=== PATIENT | male | born 1965 | race Caucasian/White ===

== ENCOUNTER 2017-01-22 15:04 | Emergency (ER) | payer OTHER ==
--- NOTE | 2017-01-22 15:53 | Emergency Department Record ---
History of Present Illness - General Chief complaint: Extremity Problem Stated complaint: LEFT ANKLE INJURY Time Seen by Provider: 01/22/17 15:44 Source: Patient Mode of Arrival: crutches Limitations: No limitations - History of Present Illness Initial comments: 51 yo male presents with a left ankle injury that occurred last night. He lost his balance and jumped off a deck twisting his ankle. The pain persisted today. He is using crutches to help minimize weight bearing. MD Complaint: Extremity pain, Extremity swelling, Joint pain Onset/Timin -: Days(s) Location: Left, Ankle History of Same: No Radiation: Proximal Severity scale (1-10): 8 Quality: Aching Consistency: Constant Improves with: Rest Worsens with: Walking, Weight bearing Associated Symptoms: Denies other symptoms - Related Data Previous Rx's Medication Instructions Recorded Hydrocodone/Acetaminophen [[place] 1 each PO Q6H PRN #30 tablet 01/22/17 7.5-325 Tablet] Allergies Allergy/AdvReac Type Severity Reaction Status Date / Time Penicillins Allergy Unknown RASH Verified 01/22/17 15:17 Travel Screening - Travel/Exposure Within Last 30 Days Have you traveled within the last 30 days?: No - Travel/Exposure Within Last Year Have you traveled outside the [place] in the last year?: No - Additonal Travel Details Have you been exposed to anyone with a communicable illness?: No - Travel Symptoms Symptom Screening: None Review of Systems Constitutional: Denies: Chills, Fever, Malaise, Weakness Eyes: Denies: Eye discharge, Eye pain ENT: Denies: Congestion, Throat pain Respiratory: Denies: Cough, Dyspnea Cardiovascular: Denies: Chest pain, Syncope Endocrine: Denies: Fatigue Gastrointestinal: Denies: Abdominal pain, Diarrhea, Nausea, Vomiting Genitourinary: Denies: Dysuria, Frequency, Hematuria, Urgency Musculoskeletal: Reports: Arthralgia. Denies: As per HPI, Back pain, Myalgia Skin: Denies: Bruising, Change in color, Rash Neurological: Denies: Headache, Numbness Psychiatric: Denies: Anxiety Hematological/Lymphatic: Denies: Blood Clots, Easy bleeding, Easy bruising, Swollen glands Past Medical History - SOCIAL HISTORY Smoking Status: Never smoker Alcohol Use: Occasional Drug Use: None - RESPIRATORY Hx Respiratory Disorders: No - CARDIOVASCULAR Hx Cardio Disorders: No - NEURO Hx Neuro Disorders: No - GI Hx GI Disorders: No - Hx Genitourinary Disorders: No - ENDOCRINE Hx Endocrine Disorders: No - MUSCULOSKELETAL Hx Musculoskeletal Disorders: No - PSYCH Hx Psych Problems: No - HEMATOLOGY/ONCOLOGY Hx Hematology/Oncology Disorders: No Family Medical History Any Significant Family History?: Yes Family Hx Comment (NOT TO BE USED IN PLACE OF ITEMS BELOW): none noted Physical Exam - General General Appearance: Alert, Oriented x3, Cooperative, No acute distress Limitations: No limitations - Head Head exam: Atraumatic, Normal inspection - Eye Eye exam: Normal appearance - ENT ENT exam: Normal exam Ear exam: Normal external inspection Nasal Exam: Normal inspection Mouth exam: Normal external inspection - Neck Neck exam: Normal inspection - Cardiovascular Peripheral Pulses: 2+: Radial (L) - Rectal Rectal exam: Deferred - exam: Deferred - Extremities Extremities exam: Full ROM, Joint swelling, Tenderness, Other (sensation is intact to the foot, the foot is pink and warm with brisk cap refill, moderate swellling of the ankle without gross deformity). negative: Normal inspection Image of Full Body: 1 - tenderness, swelling intact skin - Neurological Neurological exam: Alert, Normal gait, Oriented X3 - Psychiatric Psychiatric exam: Normal affect, Normal mood. negative: Agitated, Anxious - Skin Skin exam: Dry, Intact, Warm. negative: Normal color (bruising lateral ankle, no blisters, skin intact) Course Vital Signs 01/22/17 15:10 Temperature 99.2 F Pulse Rate 101 H Respiratory 20 Rate Blood Pressure 141/87 Pulse Ox 98 - Reevaluation(s) Reevaluation #1: The XR was reviewed. There is a distal fibula fracture with ankle mortise asymmetry. 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 01/22/17 16:06 Disposition Disposition: Discharge Clinical Impression: Ankle fracture, left Qualifiers: Encounter type: initial encounter Fracture type: closed Qualified Code(s): S82.892A - Other fracture of left lower leg, initial encounter for closed fracture Disposition: Home, Self-Care Instructions: Ankle Fracture (ED) Additional Instructions: Ice and elevate as much as possible non-weight bearing, use crutches Call Dr Asencio tomorrow and ask for Dr Mojica No weight bearing Prescriptions: Hydrocodone/Acetaminophen [[place] 7.5-325 Tablet] 1 each PO Q6H PRN #30 tablet PRN Reason: Pain - General Referrals: OMAR ASENCIO [] - Forms: Patient Portal Access Time of Disposition: 16:06 Quality - Quality Measures Quality Measures: N/A - Blood Pressure Screening Does Patient Have Any of the Following: No Blood Pressure Classification: Pre-Hypertensive BP Reading Systolic Measurement: 141 Diastolic Measurement: 87 Screening for High Blood Pressure: < Pre-Hypertensive BP, F/U Documented > [ [id number]] Pre-Hypertensive Follow-up Interventions: Referral to alternative/primary care provider.
--- NOTE | 2017-01-23 23:45 | RADIOLOGY REPORT ---
EXAM: ANKLE LEFT 3 VIEWS HISTORY: DIFFUSE ANKLE PAIN POST FALL. TECHNIQUE: Three views of the left ankle. COMPARISON: None. ENCOUNTER: Initial. FINDINGS: There is normal bone mineralization. There is an oblique/spiral fracture of the distal shaft of the fibula extending to the level of the proximal aspect of the distal tibiofibular syndesmosis. There is 4 mm of lateral displacement of the distal fracture fragment. In addition, there is widening of the medial ankle mortise joint space best seen on the AP view. A tiny calcific density is noted medial to the talus on the AP view and a small acute avulsion-type fracture cannot be excluded, though no donor site is visualized. There is diffuse soft tissue swelling. A small plantar calcaneal spur is present. IMPRESSION: 1. MILDLY DISPLACED OBLIQUE/SPIRAL FRACTURE OF THE DISTAL FIBULA. WIDENING OF THE MEDIAL ANKLE MORTISE JOINT SPACE. TINY CALCIFICATION NEAR THE INFERIOR ASPECT OF THE ANKLE MORTISE JOINT SPACE WITH ACUTE AVULSION FRACTURE NOT EXCLUDED. 2. DIFFUSE SOFT TISSUE SWELLING. 3. SMALL PLANTAR CALCANEAL SPUR. JOB NUMBER: [id number] [facility]
== END 2017-01-22 16:28 | disposition home or self-care (01) ==
LOC: ER 15:04
DX: S82.832A Other fracture of upper and lower end of left fibula, initial encounter for closed fracture (principal); X50.1XXA Overexertion from prolonged static or awkward postures, initial encounter
CPT/HCPCS: 99283